=== PATIENT | female | born 1940 | race African-American/Black ===

== ENCOUNTER 2018-07-08 13:39 | Emergency (ER) | payer OTHER ==
[~2018-07-08] VITALS: Ht 167.6 cm; Wt 78.9 kg
[~2018-07-08 13:39] MED LIST: APIDRA SOLOS100 U/ML IJ; APIDRA100 U/M1; BENICAR HCT1 TA1 PO; BENICAR HCT1 TAB PO; BYSTOLIC10 M1 PO; CLONIDINE HCL0.1 MG PO; FISH OIL1 CAP PO; FOLIC ACID1 MG PO; FUROSEMIDE40 MG PO; GARLIC500 M1 PO; INDOMETHACIN50 MG PO; KLOR-CON M2020 MEQ PO; LAC PO; LASIX40 MG PO; LEVAQUIN250 MG PO; LEVEMIR100 U/M1; LEVEMIR100 U/M1 SC; MAGNESIUM OXID400 MG PO; MASON NATURAL1200 MG PO; METFORMIN HCL1000 MG PO; METFORMIN HYDR500 M1 PO; METOLAZONE5 M1 PO; MULTIVITAMIN1 SGL PO; OMEPRAZOLE40 M1 PO; VITAMIN B121000 MCG PO; VITAMIN C500 M2 PO; VITAMIN D32000 I2 PO; [UNRECOGNIZED DRUG - CODE] PO
[2018-07-08 14:02] VITALS: Ht 167.6 cm; Wt 78.9 kg
[2018-07-08 15:30] LABS: BASOPHIL % 1.8 % (0-2); PLATELET COUNT 178 x10^3mcL (130-400); RED CELL DISTRIBUTION WIDTH 13.6 % (11.5-14.5)
[2018-07-08 15:38] LABS: CALCIUM 9.2 mg/dL (8.5-10.1); CARBON DIOXIDE 26.5 mmol/L (21-32); CHLORIDE SERUM 107 mmol/L (98-107); CREATININE SERUM 1.6 mg/dL (0.6-1.0); GLUCOSE SERUM 207 mg/dL (74-106); SODIUM SERUM 144 mmol/L (136-145)
[2018-07-08 15:42] LABS: ALKALINE PHOSPHATASE 64 U/L (46-116); ALT/SGPT 16 U/L (14-59); AST/SGOT 23 U/L (15-37); TOTAL PROTEIN, SERUM 6.9 g/dL (6.4-8.2)
[2018-07-08 15:45] LABS: ALBUMIN 3.1 g/dL (3.4-5.0)
[2018-07-08 17:14] VITALS: BP 147/60
== END 2018-07-08 17:14 | disposition home or self-care (01) ==
LOC: ED 13:39
PROVIDERS: Emergency Medicine
DX: J20.9 Acute bronchitis, unspecified (principal); I10 Essential (primary) hypertension; E11.9 Type 2 diabetes mellitus without complications; Z88.2 Allergy status to sulfonamides; Z88.5 Allergy status to narcotic agent; Z88.8 Allergy status to other drugs, medicaments and biological substances; Z88.0 Allergy status to penicillin; Z88.1 Allergy status to other antibiotic agents; Z87.442 Personal history of urinary calculi
CPT/HCPCS: 36415; 83880; 85378; J7620